=== PATIENT | male | born 1970 | race American Indian/Alaskan Native ===

== ENCOUNTER 2017-12-08 13:30 | Emergency (ER) | payer SELFPAY ==
[2017-12-08] MEDS ORDERED: ASPIRIN PO ONE (13:54)
[2017-12-08 14:22] LABS: Basophils % (Auto) 0.5 % (0.0-1.8); Eosinophils # (Auto) 0.4 K/mm3 (0.0-0.4); Eosinophils % (Auto) 5.1 % (0.0-4.3); Hemoglobin 15.5 gm/dl (11.8-15.2); Lymphocytes # (Auto) 3.1 K/mm3 (1.2-5.4); Lymphocytes % (Auto) 37.9 % (13.4-35.0); Mean Corpuscular HGB Conc 34 % (32-34); Mean Corpuscular Hemoglobin 32 pg (28-32); Mean Corpuscular Volume 92 fl (84-94); Monocytes # (Auto) 0.6 K/mm3 (0.0-0.8); Platelet Count 244 K/mm3 (140-440); Red Cell Distribution Width 14.5 % (13.2-15.2)
[2017-12-08 14:37] LABS: BUN/Creatinine Ratio 11; Blood Urea Nitrogen 10 mg/dL (9-20); Calcium 9.3 mg/dL (8.4-10.2); Hemolysis Index 15
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
[2017-12-08 21:59] VITALS: BP 118/81
--- NOTE | 2017-12-08 22:20 | XRay Report ---
FINAL REPORT EXAM: XR CHEST 1V AP HISTORY: chest pain TECHNIQUE: Single, portable chest x-ray. PRIORS: None. FINDINGS: Cardiac and mediastinal silhouette within normal limits. Lungs are normally expanded, without significant vascular congestion. No focal consolidation or apparent pneumothorax. Bony thorax grossly unremarkable. IMPRESSION: 1. No acute findings.
== END 2017-12-08 23:03 | disposition home or self-care (01) ==
LOC: ED 13:30
DX: R07.9 Chest pain, unspecified (principal); J45.909 Unspecified asthma, uncomplicated; F17.200 Nicotine dependence, unspecified, uncomplicated; F10.10 Alcohol abuse, uncomplicated; F19.90 Other psychoactive substance use, unspecified, uncomplicated; Z88.0 Allergy status to penicillin
CPT/HCPCS: 36415; 71045; 80048; 83690; 84484; 85025; 85379; 93005; 93010; 99284

== ENCOUNTER 2018-01-12 20:53 | Inpatient (IN) | payer OTHER ==
[2018-01-12 21:46] LABS: Basophils % (Auto) 0.4 % (0.0-1.8); Eosinophils # (Auto) 0.2 K/mm3 (0.0-0.4); Eosinophils % (Auto) 2.1 % (0.0-4.3); Hematocrit 43.5 % (35.5-45.6); Hemoglobin 15.1 gm/dl (11.8-15.2); Lymphocytes # (Auto) 3.7 K/mm3 (1.2-5.4); Lymphocytes % (Auto) 42.5 % (13.4-35.0); Mean Corpuscular HGB Conc 35 % (32-34); Mean Corpuscular Hemoglobin 32 pg (28-32); Mean Corpuscular Volume 93 fl (84-94); Monocytes # (Auto) 0.7 K/mm3 (0.0-0.8); Monocytes % (Auto) 8.4 % (0.0-7.3); Platelet Count 327 K/mm3 (140-440); Red Blood Count 4.67 M/mm3 (3.65-5.03); Red Cell Distribution Width 14.3 % (13.2-15.2)
[2018-01-12 21:59] LABS: Alanine Aminotransferase 30 units/L (7-56); Albumin 4.5 g/dL (3.9-5); BUN/Creatinine Ratio 10; Blood Urea Nitrogen 9 mg/dL (9-20); Calcium 10.1 mg/dL (8.4-10.2); Hemolysis Index 7
[2018-01-12 22:21] LABS: Bilirubin,Urine NEG (Negative); Blood,Urine NEG (Negative); Color,Urine Yellow (Yellow); Protein,Urine <15 mg/dL mg/dL (Negative); Urobilinogen,Urine < 2.0 mg/dL (<2.0); WBC,Urine < 1.0 /HPF (0.0-6.0)
[2018-01-12 22:29] LABS: Amphetamine Screen,Urine PRESUMPTIVE NEGATIVE; Benzodiazepines Screen,Urine PRESUMPTIVE NEGATIVE; Cannabinoid Screen,Urine PRESUMPTIVE NEGATIVE; Cocaine Screen,Urine PRESUMPTIVE NEGATIVE; Methadone Screen,Urine PRESUMPTIVE NEGATIVE; Opiate Screen,Urine PRESUMPTIVE NEGATIVE
[2018-01-13] MEDS ORDERED: BABY ASPIRIN PO ONE (00:27)
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
[2018-01-13] MEDS ORDERED: MORPHINE IV PRN (04:03)
[2018-01-13 05:33] LABS: Creatine Kinase MB 4.3 ng/mL (0.0-4.0)
--- NOTE | 2018-01-13 08:52 | History and Physical Report ---
History of Present Illness Date of examination: 01/13/18 Date of admission: 01/13/18 04:02 Chief complaint: chest pain History of present illness: Mr. Fontaine is a 47 yo male with hx of depression and polysubstance abuse. He has been clean of alcohol and cocaine for the past 18 months. He is currently in a rehab program. Today at work, he had the sudden onset of left shoulder/ upper back pain, headache and lightheadedness. He felt as if has was going to pass out. Pain lasted several minutes. Now, resolved. ONly slight frontal headache currently. Seen in ED last month for chest pain. Was not able to f/u for outpatient cardiac stress test. He does not have a PCP. Both parents have hx of cardiac dz. He has hx of continued tobacco abuse. He has been under a lot of stress. His abandoned him and the children 5 days ago last . Past medical History: h/o depression Past surgical History: None Social History: Lives with family, admits smoking, has history of drinking and elicit drug abuse but now in recovery. Family History: Significant for heart disease in father and mother recurrent open heart surgery. Review of System: Constitutional: no fever, no chills, no weight loss Ears, eyes, nose, mouth and throat: no nasal congestion, no nasal discharge, no sinus pressure, no vision change, no red eye. Neck: No neck pain or rigidity. Cardiovascular: + chest pain, no orthopnea, no palpitations, no leg swelling Respiratory: No shortness of breath, no cough, no congestion, no wheezing Gastrointestinal: no abdominal pain, no nausea, no vomiting Genitourinary : no dysuria, no hematuria Musculoskeletal: no joint swelling or muscle ache Integumentary: no rash, no pruritis Neurological: no parathesias, no numbness, no tingling Endocrine: no cold or heat intolerance, no polyuria or polydipsia Hematologic/Lymphatic: no easy bruising, no easy bleeding, no gland swelling Allergic/Immunologic: no urticaria, no angioedema. Medications and Allergies Allergies Allergy/AdvReac Type Severity Reaction Status Date / Time Penicillins Allergy Hives Verified 04/22/15 01:04 Home Medications Medication Instructions Recorded Confirmed Last Taken Type Doxycycline [Vibramycin CAP] 100 mg PO Q12HR #20 capsule 04/08/16 Unknown Rx Active Meds: Active Medications Morphine Sulfate (Morphine) 2 mg IV Q4H PRN PRN Reason: Pain, Moderate (4-6) Exam - Physical Exam Narrative exam: GENERAL: well-developed obese -[place] male lying on bed appeared to be in no discomfort. HEENT: Normocephalic. Atraumatic. No conjunctival congestion or icterus. Patient has moist mucous membranes. NECK: Supple. Trachea midline. CHEST/LUNGS: Clear to auscultated bilaterally, breathing nonlabored. No wheezes crackles or rhonchi. HEART/CARDIOVASCULAR: Regular in rate and rhythm. S1 and S2 positive. ABDOMEN: Abdomen is soft, nontender. Patient has normal bowel sounds. SKIN: There is no rash. Warm and dry. NEURO: No focal motor deficit. Follows command. MUSCULOSKELETAL: No joint effusion or tenderness. EXTRIMITY: No edema, no cyanosis or clubbing. PSYCH: Cooperative. - Constitutional Vitals: Temp Pulse Resp BP Pulse Ox 97.4 F L 63 15 129/82 92 01/13/18 01:00 01/13/18 06:00 01/13/18 06:00 01/13/18 06:00 01/13/18 06:00 Results - Labs CBC & Chem 7: 01/12/18 21:35 01/12/18 21:35 Labs: Abnormal lab results 01/12/18 01/12/18 01/13/18 Range/Units 21:35 21:35 04:40 MCHC 35 H (32-34) % Lymph % (Auto) 42.5 H (13.4-35.0) % [place] % (Auto) 8.4 H (0.0-7.3) % Glucose 109 H (75-100) mg/dL Total Creatine Kinase 328 H (55-170) units/L CK-MB (CK-2) 4.3 H (0.0-4.0) ng/mL Assessment and Plan Acute chest pain - will admit to telemetry bed - monitor with serial CE and EKG - will place on Aspirin, statin - as needed SL NTG and iv morphin for pain - Monitor BP, add betablocker and ACEI - order 2D echo and stress test - cardiac diet now, NPO for now Depression, resume home meds Obesity, diet and exercise recommendation when clinically stable DVT PX, - provide DVT Px with lovenox
[2018-01-13 10:31] LABS: Creatine Kinase MB 3.8 ng/mL (0.0-4.0)
[2018-01-13] MEDS ORDERED: LEXISCAN IV ONE (12:00)
--- NOTE | 2018-01-13 13:17 | Treadmill Report ---
SINGLE ISOTOPE DUAL STUDY MYOCARDIAL PERFUSION SCAN The patient received 10 mCi of technetium 99m Myoview intravenously under resting conditions. Resting myocardial perfusion scan was done. Subsequently, the patient underwent Lexiscan stress test as per the protocol. During Lexiscan stress, the patient received 28 mCi of technetium 99m Myoview intravenously. After 30-60 minutes, post stress images were done. Computerized reconstruction image was performed for analysis. The post-stress images did not reveal any perfusion abnormality. Cinematic display of the gated study did not reveal any wall motion abnormality. The left ventricular ejection fraction was normal and was calculated to be 57%. The resting images were also normal. CONCLUSION: 1. No perfusion abnormality of the left ventricular myocardium was demonstrated in the resting as well as stress images obtained after the patient underwent Lexiscan stress test. 2. No wall motion abnormality. 3. Normal left ventricular ejection fraction of 57%. JOB# [id number] [facility]
[2018-01-13 13:27] VITALS: BP 123/81
--- NOTE | 2018-01-13 14:48 | Discharge Summary ---
Providers - Providers Date of Admission: 01/13/18 04:02 Date of discharge: 01/13/18 Attending physician: NABILA CHIU Primary care physician: ELSIE HINSON MD Hospitalization Condition: Stable Hospital course: Discharge diagnosis: Chest pain, likely GERD depression obesity Disposition: DC-01 TO HOME OR SELFCARE Time spent for discharge: 32 minutes Core Measure Documentation - Palliative Care Palliative Care/ Comfort Measures: Not Applicable - Core Measures Any of the following diagnoses?: none Exam - Physical Exam Narrative exam: GENERAL: well-developed obese -Turk[place] male lying on bed appeared to be in no discomfort. HEENT: Normocephalic. Atraumatic. No conjunctival congestion or icterus. Patient has moist mucous membranes. NECK: Supple. Trachea midline. CHEST/LUNGS: Clear to auscultated bilaterally, breathing nonlabored. No wheezes crackles or rhonchi. HEART/CARDIOVASCULAR: Regular in rate and rhythm. S1 and S2 positive. ABDOMEN: Abdomen is soft, nontender. Patient has normal bowel sounds. SKIN: There is no rash. Warm and dry. NEURO: No focal motor deficit. Follows command. MUSCULOSKELETAL: No joint effusion or tenderness. EXTRIMITY: No edema, no cyanosis or clubbing. PSYCH: Cooperative. - Constitutional Vitals: Temp Pulse Resp BP Pulse Ox 97.9 F 69 20 123/81 98 01/13/18 12:35 01/13/18 12:35 01/13/18 14:28 01/13/18 12:35 01/13/18 14:28 Plan Activity: advance as tolerated Weight Bearing Status: Weight Bear as Tolerated Diet: low fat, low salt Additional Instructions: f/u at [facility] in one week Follow up with: PRIMARY CAREMD [Primary Care Provider] - 3-5 Days Prescriptions: Pantoprazole [Protonix] 40 mg PO QDAY #30 tablet
--- NOTE | 2018-01-13 17:41 | XRay Report ---
FINAL REPORT EXAM: XR CHEST 1V AP HISTORY: chest pain TECHNIQUE: Frontal chest radiograph. PRIORS: 12/08/2017. FINDINGS: The left lateral costophrenic angle was not completely included on the study. The cardiomediastinal silhouette is normal. No focal consolidation. No pleural effusion. No pneumothorax. No acute osseous abnormality. IMPRESSION: No acute cardiopulmonary process.
[2018-01-13] MEDS ORDERED: LOVENOX SUB-Q SCH (22:00)
== END 2018-01-13 18:40 | disposition home or self-care (01) | DRG 392 ==
LOC: ED 20:53 → 4A 01-13 04:02
PROVIDERS: ADMIT Internal Medicine; ATTEND Internal Medicine
DX: K21.9 Gastro-esophageal reflux disease without esophagitis (principal); F32.9 Major depressive disorder, single episode, unspecified; E66.9 Obesity, unspecified; G43.909 Migraine, unspecified, not intractable, without status migrainosus; J45.909 Unspecified asthma, uncomplicated; F17.200 Nicotine dependence, unspecified, uncomplicated; F14.90 Cocaine use, unspecified, uncomplicated; M25.519 Pain in unspecified shoulder; Z68.31 Body mass index [BMI] 31.0-31.9, adult; Z82.49 Family history of ischemic heart disease and other diseases of the circulatory system; Z88.0 Allergy status to penicillin; Z79.899 Other long term (current) drug therapy; Z72.89 Other problems related to lifestyle
CPT/HCPCS: 36415; 71045; 78452; 80053; 80307; 81001; 82550; 82553; 84484; 85025; 85379; 93005; 93010; 93017; 93306; A9502; J2785

== ENCOUNTER 2019-12-02 19:57 | Inpatient (IN) | payer SELFPAY ==
[2019-12-02] MEDS ORDERED: SODIUM CHLORIDE 0.9% 1000 ML 1,000 ML IV ONE ×2 (21:39→23:12)
[2019-12-02 22:01] LABS: Basophils # (Auto) 0.3 K/mm3 (0.0-0.1); Basophils % (Auto) 2.9 % (0.0-1.8); Eosinophils # (Auto) 0.1 K/mm3 (0.0-0.4); Eosinophils % (Auto) 0.7 % (0.0-4.3); Hematocrit 47.5 % (35.5-45.6); Hemoglobin 16.1 gm/dl (11.8-15.2); Lymphocytes # (Auto) 2.3 K/mm3 (1.2-5.4); Lymphocytes % (Auto) 22.2 % (13.4-35.0); Mean Corpuscular HGB Conc 34 % (32-34); Mean Corpuscular Volume 94 fl (84-94); Monocytes # (Auto) 0.6 K/mm3 (0.0-0.8); Monocytes % (Auto) 6.2 % (0.0-7.3); Platelet Count 356 K/mm3 (140-440); Red Blood Count 5.05 M/mm3 (3.65-5.03); Red Cell Distribution Width 13.7 % (13.2-15.2)
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
[2019-12-02 22:19] LABS: Alanine Aminotransferase 17 units/L (7-56); Albumin 4.9 g/dL (3.9-5); BUN/Creatinine Ratio 16; Blood Urea Nitrogen 21 mg/dL (9-20); Calcium 10.5 mg/dL (8.4-10.2); Hemolysis Index 6
[2019-12-02] MEDS ORDERED: INSULIN REGULAR, HUMAN 100 UNITS/1 ML IV ONE (22:39)
[2019-12-02 22:45] LABS: Bilirubin,Urine NEG (Negative); Blood,Urine NEG (Negative); Color,Urine Straw (Yellow); Protein,Urine <15 mg/dL mg/dL (Negative); Urobilinogen,Urine < 2.0 mg/dL (<2.0)
--- NOTE | 2019-12-02 23:23 | Event Note ---
Face to Face: For this encounter I have reviewed the PA/FULL STACK DEVELOPER documentation, treatment plan, medical decision making, and I had face to face time with this patient. I evaluated patient. Dx: DKA I ordered IVF, insulin infusion; I provided bridging orders
[2019-12-02] MEDS ORDERED: ONDANSETRON 4 MG/2 ML INJ IV PRN (23:43)
[2019-12-02] MEDS ORDERED: DEXTROSE 50% IN WATER (25GM) 50 ML SYRINGE IV PRN (23:43)
[2019-12-02] MEDS ORDERED: INSULIN REGULAR, HUMAN 100 UNITS in SODIUM CHLORIDE 0.9% 99 ML IV SCH ×3 (23:45)
[2019-12-02] MEDS ORDERED: SODIUM CHLORIDE 0.9% 1000 ML 1,000 ML IV SCH (23:45)
--- NOTE | 2019-12-03 00:01 | History and Physical Report ---
History of Present Illness Date of examination: 12/02/19 Date of admission: 12/02/2019 Chief complaint: Generalized fatigue History of present illness: 49-year-old -[place] male with no significant past medical history presenting to the emergency room today complaining of generalized fatigue, increased thirst and increased urinary frequency. He has also had some nausea and vomiting with some mild abdominal discomfort, denies any diarrhea, denies any fever or chills, no chest pain or shortness of breath. Patient denies any sick contacts and no recent travel. Work-up in the emergency room reveals that patient is in DKA. He has been started on insulin drip and IV fluid. Past History Past Medical History: No medical history Past Surgical History: No surgical history Social history: smoking (1/2 Pack of cigarette daily) Family history: no significant family history Medications and Allergies Allergies Allergy/AdvReac Type Severity Reaction Status Date / Time Penicillins Allergy Hives Verified 04/22/15 01:04 Home Medications Medication Instructions Recorded Confirmed Last Taken Type DOXYCYCLINE Hyclate [Vibramycin 100 mg PO Q12HR #20 capsule 04/08/16 Unknown Rx CAP] Pantoprazole [Protonix] 40 mg PO QDAY #30 tablet 01/13/18 Unknown Rx Active Meds: Active Medications Dextrose (D50w (25gm) Syringe) 0 ml IV Q30MIN PRN; Protocol PRN Reason: Hypoglycemia Sodium Chloride (Nacl 0.9% 1000 Ml) 1,000 mls @ 999 mls/hr IV BOLUS ONE Stop: 12/03/19 00:12 Last Admin: 12/02/19 23:24 Dose: 999 mls/hr Documented by: Insulin Human Regular 100 (units/ Sodium Chloride) 100 mls @ 1 mls/hr IV TITR ALLIE; Protocol Sodium Chloride (Nacl 0.9% 1000 Ml) 1,000 mls @ 150 mls/hr IV DIRECT ALLIE Insulin Human Regular 100 (units/ Sodium Chloride) 100 mls @ 1 mls/hr IV TITR ALLIE; Protocol Potassium Chloride/Dextrose/Sod Cl (D5w/0.45% Nacl/Kcl 20 Meq) 20 meq in 1,000 mls @ 125 mls/hr IV DIRECT ALLIE Ondansetron HCl (Zofran) 4 mg IV Q8H PRN PRN Reason: Nausea And Vomiting Sodium Chloride (Sodium Chloride Flush Syringe 10 Ml) 10 ml IV BID ALLIE Sodium Chloride (Sodium Chloride Flush Syringe 10 Ml) 10 ml IV PRN PRN PRN Reason: LINE FLUSH Review of Systems Constitutional: no fever, no chills Cardiovascular: no chest pain, no palpitations Respiratory: no cough, no shortness of breath Gastrointestinal: abdominal pain, nausea, vomiting, no diarrhea Genitourinary Male: urinary frequency, no dysuria, no hematuria Musculoskeletal: no neck stiffness, no low back pain Integumentary: no rash, no pruritis Neurological: no syncope, no headaches, no confusion Exam - Constitutional Vitals: Temp Pulse Resp BP Pulse Ox 97.8 F 107 H 18 141/89 97 12/02/19 21:01 12/02/19 21:01 12/02/19 21:01 12/02/19 21:12/02/19 21:01 General appearance: Present: no acute distress, well-nourished, other (Dry oral mucosa) - EENT Eyes: Present: PERRL, EOM intact ENT: hearing intact, clear oral mucosa, dentition normal - Neck Neck: Present: supple, normal ROM - Respiratory Respiratory effort: normal Respiratory: bilateral: CTA - Cardiovascular Rhythm: regular Heart Sounds: Present: S1 & S2 - Extremities Extremities: no ischemia, pulses intact, pulses symmetrical, No edema, Full ROM Peripheral Pulses: within normal limits - Abdominal General gastrointestinal: Present: soft, non-tender, non-distended, normal bowel sounds - Integumentary Integumentary: Present: clear, warm, dry, normal turgor - Musculoskeletal Musculoskeletal: strength equal bilaterally - Psychiatric Psychiatric: appropriate mood/affect, intact judgment & insight, cooperative - Neurologic Neurologic: CNII-XII intact, moves all extremities Results - Labs CBC & Chem 7: 12/02/19 21:45 12/03/19 00:46 Labs: Abnormal lab results 12/02/19 12/02/19 12/02/19 Range/Units 21:45 21:45 21:45 RBC 5.05 H (3.65-5.03) M/mm3 Hgb 16.1 H (11.8-15.2) gm/dl Hct 47.5 H (35.5-45.6) % Baso % (Auto) 2.9 H (0.0-1.8) % Baso # 0.3 H (0.0-0.1) K/mm3 VBG pH 7.314 L (7.320-7.420) Sodium 131 L (137-145) mmol/L Potassium 5.4 H (3.6-5.0) mmol/L Chloride 90.9 L (98-107) mmol/L Carbon Dioxide 19 L (22-30) mmol/L BUN 21 H (9-20) mg/dL Glucose 492 H (75-100) mg/dL Calcium 10.5 H (8.4-10.2) mg/dL Magnesium (1.7-2.3) mg/dL Total Protein 8.5 H (6.3-8.2) g/dL 12/02/19 Range/Units 22:19 RBC (3.65-5.03) M/mm3 Hgb (11.8-15.2) gm/dl Hct (35.5-45.6) % Baso % (Auto) (0.0-1.8) % Baso # (0.0-0.1) K/mm3 VBG pH (7.320-7.420) Sodium (137-145) mmol/L Potassium (3.6-5.0) mmol/L Chloride (98-107) mmol/L Carbon Dioxide (22-30) mmol/L BUN (9-20) mg/dL Glucose (75-100) mg/dL Calcium (8.4-10.2) mg/dL Magnesium 2.70 H (1.7-2.3) mg/dL Total Protein (6.3-8.2) g/dL Assessment and Plan - Patient Problems (1) DKA (diabetic ketoacidosis) Current Visit: Yes Status: Acute Plan to address problem: Patient has been placed on insulin drip and IV fluid according to protocol. We will monitor Accu-Cheks and also monitor chemistry. We will get dietary consult prior to discharge. (2) DVT prophylaxis Current Visit: Yes Status: Acute Plan to address problem: Patient placed on subcutaneous heparin. (3) Full code status Current Visit: Yes Status: Acute
[2019-12-03 01:07] LABS: BUN/Creatinine Ratio 19; Blood Urea Nitrogen 17 mg/dL (9-20); Calcium 8.7 mg/dL (8.4-10.2); Hemolysis Index 42
[2019-12-03] MEDS: D5W/0.45% NACL/KCL 20 MEQ 20 MEQ/1,000 ML BAG IV SCH ×2 (02:10→09:30)
[2019-12-03 06:44] LABS: Basophils # (Auto) 0.1 K/mm3 (0.0-0.1); Basophils % (Auto) 0.6 % (0.0-1.8); Eosinophils # (Auto) 0.1 K/mm3 (0.0-0.4); Eosinophils % (Auto) 1.1 % (0.0-4.3); Hematocrit 42.1 % (35.5-45.6); Hemoglobin 14.4 gm/dl (11.8-15.2); Lymphocytes # (Auto) 3.3 K/mm3 (1.2-5.4); Lymphocytes % (Auto) 39.1 % (13.4-35.0); Mean Corpuscular HGB Conc 34 % (32-34); Mean Corpuscular Volume 94 fl (84-94); Monocytes # (Auto) 0.7 K/mm3 (0.0-0.8); Monocytes % (Auto) 8.2 % (0.0-7.3); Platelet Count 324 K/mm3 (140-440); Red Blood Count 4.49 M/mm3 (3.65-5.03); Red Cell Distribution Width 13.5 % (13.2-15.2)
[2019-12-03 07:48] LABS: BUN/Creatinine Ratio 14; Blood Urea Nitrogen 13 mg/dL (9-20); Hemolysis Index 18
[2019-12-03] MEDS ORDERED: POTASSIUM PHOSPHATE 15 MMOL in SODIUM CHLORIDE 0.9% 250ML 250 ML IV ONE (09:00)
[2019-12-03 10:44] LABS: BUN/Creatinine Ratio 14; Blood Urea Nitrogen 11 mg/dL (9-20); Calcium 8.9 mg/dL (8.4-10.2); Hemolysis Index 18
--- NOTE | 2019-12-03 12:19 | Progress Note ---
Assessment and Plan DKA with type 2 diabetes -Patient admitted to ICU with insulin drip -Anion gap closed this morning, will DC insulin drip and placed on long-acting insulin along with sliding scale insulin with Accu-Chek QA CHS -We will continue to adjust insulin doses to better control blood glucose -Placed on consistent carb diet, A1c 11.1 New onset diabetes mellitus type 2 -Placed on long-acting and sliding scale of insulin today -If BMP stable will place on metformin tomorrow -Consulted nutrition for diabetic education Hyponatremia, likely due to hyperglycemia -Improved with improvement of blood glucose, continue to monitor BMP Hyperkalemia, likely from dehydration resolved with IV fluid Hypophosphatemia, replete DVT prophylaxis, Lovenox Brief history: 49-year-old -[place] male with no significant past medical history presentedto the emergency room today complaining of generalized fatigue, increased thirst and increased urinary frequency. He has also had some nausea and vomiting with some mild abdominal discomfort. Work-up in the emergency room reveals that patient is in DKA with a blood glucose 492, anion gap 27, positive ketones of 80 in the urine. He he was started on insulin drip, IV fluid and admitted to ICU for further management.. Physical exam: GENERAL: well-developed and well-nourished -[place] male lying on bed appeared to be in no discomfort. HEENT: Normocephalic. Atraumatic. No conjunctival congestion or icterus. Patient has moist mucous membranes. NECK: Supple. Trachea midline. CHEST/LUNGS: Clear to auscultated bilaterally, breathing nonlabored. No wheezes crackles or rhonchi. HEART/CARDIOVASCULAR: Regular in rate and rhythm. S1 and S2 positive. ABDOMEN: Abdomen is soft, nontender. Patient has normal bowel sounds. SKIN: There is no rash. Warm and dry. NEURO: No focal motor deficit. Follows command. MUSCULOSKELETAL: No joint effusion or tenderness. EXTRIMITY: No edema, no cyanosis or clubbing. PSYCH: Cooperative. Subjective Date of service: 12/03/19 Interval history: Patient seen and examined. Medical records and medication list reviewed. No acute event overnight noted by the RN. Patient denies any chest pain or difficulty breathing. Patient complains of nausea but no abdominal pain Discussed plan of care at bedside with patient. Objective - Constitutional Vitals: Vital Signs - 12hr 12/03/19 12/03/19 12/03/19 00:30 01:00 01:30 Temperature Pulse Rate 92 H 107 H 91 H Respiratory 17 22 25 H Rate Blood Pressure 117/81 117/81 127/88 Blood Pressure [Left] O2 Sat by Pulse 95 97 96 Oximetry 12/03/19 12/03/19 12/03/19 02:00 02:20 03:01 Temperature 98.2 F Pulse Rate 88 91 H Respiratory 14 Rate Blood Pressure 113/80 Blood Pressure [Left] O2 Sat by Pulse 96 Oximetry 12/03/19 12/03/19 12/03/19 04:00 05:00 05:23 Temperature 97.7 F 97.7 F Pulse Rate 86 71 71 Respiratory 14 17 17 Rate Blood Pressure 114/77 128/77 Blood Pressure 128/77 [Left] O2 Sat by Pulse 96 97 97 Oximetry 12/03/19 12/03/19 12/03/19 06:00 07:00 08:00 Temperature 98.7 F Pulse Rate 81 81 80 Respiratory 15 14 15 Rate Blood Pressure 128/77 121/80 113/71 Blood Pressure [Left] O2 Sat by Pulse 94 95 97 Oximetry 12/03/19 12/03/19 12/03/19 09:00 10:00 12:00 Temperature 98.6 F Pulse Rate 82 77 92 H Respiratory 14 14 Rate Blood Pressure 108/56 116/82 Blood Pressure [Left] O2 Sat by Pulse 93 97 Oximetry - Labs CBC & Chem 7: 12/03/19 05:50 12/03/19 10:13 Labs: Abnormal lab results 12/02/19 12/02/19 12/02/19 Range/Units 21:45 21:45 21:45 RBC 5.05 H (3.65-5.03) M/mm3 Hgb 16.1 H (11.8-15.2) gm/dl Hct 47.5 H (35.5-45.6) % Lymph % (Auto) (13.4-35.0) % Gem % (Auto) (0.0-7.3) % Baso % (Auto) 2.9 H (0.0-1.8) % Baso # 0.3 H (0.0-0.1) K/mm3 VBG pH 7.314 L (7.320-7.420) Sodium 131 L (137-145) mmol/L Potassium 5.4 H (3.6-5.0) mmol/L Chloride 90.9 L (98-107) mmol/L Carbon Dioxide 19 L (22-30) mmol/L BUN 21 H (9-20) mg/dL Glucose 492 H (75-100) mg/dL POC Glucose (70-105) Hemoglobin A1c (4-6) % Calcium 10.5 H (8.4-10.2) mg/dL Phosphorus (2.5-4.5) mg/dL Magnesium (1.7-2.3) mg/dL Total Protein 8.5 H (6.3-8.2) g/dL 12/02/19 12/02/19 12/03/19 Range/Units 22:19 23:17 00:46 RBC (3.65-5.03) M/mm3 Hgb (11.8-15.2) gm/dl Hct (35.5-45.6) % Lymph % (Auto) (13.4-35.0) % Gem % (Auto) (0.0-7.3) % Baso % (Auto) (0.0-1.8) % Baso # (0.0-0.1) K/mm3 VBG pH (7.320-7.420) Sodium (137-145) mmol/L Potassium (3.6-5.0) mmol/L Chloride (98-107) mmol/L Carbon Dioxide (22-30) mmol/L BUN (9-20) mg/dL Glucose (75-100) mg/dL POC Glucose (70-105) Hemoglobin A1c 11.1 H (4-6) % Calcium (8.4-10.2) mg/dL Phosphorus (2.5-4.5) mg/dL Magnesium 2.70 H 2.40 H (1.7-2.3) mg/dL Total Protein (6.3-8.2) g/dL 12/03/19 12/03/19 12/03/19 Range/Units 00:46 01:33 02:16 RBC (3.65-5.03) M/mm3 Hgb (11.8-15.2) gm/dl Hct (35.5-45.6) % Lymph % (Auto) (13.4-35.0) % Gem % (Auto) (0.0-7.3) % Baso % (Auto) (0.0-1.8) % Baso # (0.0-0.1) K/mm3 VBG pH (7.320-7.420) Sodium 135 L (137-145) mmol/L Potassium (3.6-5.0) mmol/L Chloride (98-107) mmol/L Carbon Dioxide 16 L (22-30) mmol/L BUN (9-20) mg/dL Glucose 299 H (75-100) mg/dL POC Glucose 257 H 217 H (70-105) Hemoglobin A1c (4-6) % Calcium (8.4-10.2) mg/dL Phosphorus (2.5-4.5) mg/dL Magnesium (1.7-2.3) mg/dL Total Protein (6.3-8.2) g/dL 12/03/19 12/03/19 12/03/19 Range/Units 03:10 04:10 05:11 RBC (3.65-5.03) M/mm3 Hgb (11.8-15.2) gm/dl Hct (35.5-45.6) % Lymph % (Auto) (13.4-35.0) % Gem % (Auto) (0.0-7.3) % Baso % (Auto) (0.0-1.8) % Baso # (0.0-0.1) K/mm3 VBG pH (7.320-7.420) Sodium (137-145) mmol/L Potassium (3.6-5.0) mmol/L Chloride (98-107) mmol/L Carbon Dioxide (22-30) mmol/L BUN (9-20) mg/dL Glucose (75-100) mg/dL POC Glucose 208 H 202 H 189 H (70-105) Hemoglobin A1c (4-6) % Calcium (8.4-10.2) mg/dL Phosphorus (2.5-4.5) mg/dL Magnesium (1.7-2.3) mg/dL Total Protein (6.3-8.2) g/dL 12/03/19 12/03/19 12/03/19 Range/Units 05:50 05:50 06:19 RBC (3.65-5.03) M/mm3 Hgb (11.8-15.2) gm/dl Hct (35.5-45.6) % Lymph % (Auto) 39.1 H (13.4-35.0) % Gem % (Auto) 8.2 H (0.0-7.3) % Baso % (Auto) (0.0-1.8) % Baso # (0.0-0.1) K/mm3 VBG pH (7.320-7.420) Sodium (137-145) mmol/L Potassium (3.6-5.0) mmol/L Chloride (98-107) mmol/L Carbon Dioxide (22-30) mmol/L BUN (9-20) mg/dL Glucose 207 H (75-100) mg/dL POC Glucose 211 H (70-105) Hemoglobin A1c (4-6) % Calcium (8.4-10.2) mg/dL Phosphorus 2.00 L D (2.5-4.5) mg/dL Magnesium 2.50 H (1.7-2.3) mg/dL Total Protein (6.3-8.2) g/dL 12/03/19 12/03/19 12/03/19 Range/Units 07:12 08:04 09:31 RBC (3.65-5.03) M/mm3 Hgb (11.8-15.2) gm/dl Hct (35.5-45.6) % Lymph % (Auto) (13.4-35.0) % Gem % (Auto) (0.0-7.3) % Baso % (Auto) (0.0-1.8) % Baso # (0.0-0.1) K/mm3 VBG pH (7.320-7.420) Sodium (137-145) mmol/L Potassium (3.6-5.0) mmol/L Chloride (98-107) mmol/L Carbon Dioxide (22-30) mmol/L BUN (9-20) mg/dL Glucose (75-100) mg/dL POC Glucose 195 H 192 H 176 H (70-105) Hemoglobin A1c (4-6) % Calcium (8.4-10.2) mg/dL Phosphorus (2.5-4.5) mg/dL Magnesium (1.7-2.3) mg/dL Total Protein (6.3-8.2) g/dL 12/03/19 12/03/19 12/03/19 Range/Units 10:13 10:45 11:50 RBC (3.65-5.03) M/mm3 Hgb (11.8-15.2) gm/dl Hct (35.5-45.6) % Lymph % (Auto) (13.4-35.0) % Gem % (Auto) (0.0-7.3) % Baso % (Auto) (0.0-1.8) % Baso # (0.0-0.1) K/mm3 VBG pH (7.320-7.420) Sodium 135 L (137-145) mmol/L Potassium (3.6-5.0) mmol/L Chloride (98-107) mmol/L Carbon Dioxide 20 L (22-30) mmol/L BUN (9-20) mg/dL Glucose 181 H (75-100) mg/dL POC Glucose 180 H 286 H (70-105) Hemoglobin A1c (4-6) % Calcium (8.4-10.2) mg/dL Phosphorus (2.5-4.5) mg/dL Magnesium (1.7-2.3) mg/dL Total Protein (6.3-8.2) g/dL
[2019-12-03] MEDS: INSULIN REGULAR, HUMAN 100 UNITS/1 ML SUB-Q SCH ×3 (12:20→21:27)
--- NOTE | 2019-12-03 13:41 | Consultation ---
History of Present Illness Consult date: 12/03/19 Requesting physician: ADELE PEREZ Reason for consult: other (DKA) History of present illness: PULMONARY/CCM CONSULT NOTE (Full dictation # [id number]) Please see dictated notes for full details Past History Past Medical History: No medical history Past Surgical History: No surgical history Social history: smoking (1/2 Pack of cigarette daily) Family history: no significant family history Medications and Allergies Allergies Allergy/AdvReac Type Severity Reaction Status Date / Time Penicillins Allergy Hives Verified 04/22/15 01:04 Home Medications Medication Instructions Recorded Confirmed Last Taken Type DOXYCYCLINE Hyclate [Vibramycin 100 mg PO Q12HR #20 capsule 04/08/16 Unknown Rx CAP] Pantoprazole [Protonix] 40 mg PO QDAY #30 tablet 01/13/18 Unknown Rx Active Meds: Active Medications Dextrose (D50w (25gm) Syringe) 0 ml IV Q30MIN PRN; Protocol PRN Reason: Hypoglycemia Heparin Sodium (Porcine) (Heparin) 5,000 unit SUB-Q Q8HR ALLIE Sodium Chloride (Nacl 0.9% 1000 Ml) 1,000 mls @ 150 mls/hr IV DIRECT ALLIE Insulin Human NPH (Humulin N) 18 unit SUB-Q BIDDIAB ALLIE Insulin Human Regular (Humulin R) 0 units SUB-Q ACHS ALLIE; Protocol Last Admin: 12/03/19 12:20 Dose: 6 units Documented by: Ondansetron HCl (Zofran) 4 mg IV Q8H PRN PRN Reason: Nausea And Vomiting Sodium Chloride (Sodium Chloride Flush Syringe 10 Ml) 10 ml IV BID ALLIE Last Admin: 12/03/19 09:33 Dose: 10 ml Documented by: Sodium Chloride (Sodium Chloride Flush Syringe 10 Ml) 10 ml IV PRN PRN PRN Reason: LINE FLUSH Physical Examination Vital signs: Vital Signs Temp Pulse Resp BP Pulse Ox 97.8 F 107 H 18 141/89 97 12/02/19 21:01 12/02/19 21:01 12/02/19 21:01 12/02/19 21:01 12/02/19 21:01 Results - Laboratory Findings CBC and BMP: 12/03/19 05:50 12/03/19 10:13 Abnormal lab findings: Abnormal Labs 12/02/19 12/02/19 12/02/19 21:45 21:45 21:45 RBC 5.05 H Hgb 16.1 H Hct 47.5 H Lymph % (Auto) [place] % (Auto) Baso % (Auto) 2.9 H Baso # 0.3 H VBG pH 7.314 L Sodium 131 L Potassium 5.4 H Chloride 90.9 L Carbon Dioxide 19 L BUN 21 H Glucose 492 H POC Glucose Hemoglobin A1c Calcium 10.5 H Phosphorus Magnesium Total Protein 8.5 H 12/02/19 12/02/19 12/03/19 22:19 23:17 00:46 RBC Hgb Hct Lymph % (Auto) [place] % (Auto) Baso % (Auto) Baso # VBG pH Sodium Potassium Chloride Carbon Dioxide BUN Glucose POC Glucose Hemoglobin A1c 11.1 H Calcium Phosphorus Magnesium 2.70 H 2.40 H Total Protein 12/03/19 12/03/19 12/03/19 00:46 01:33 02:16 RBC Hgb Hct Lymph % (Auto) [place] % (Auto) Baso % (Auto) Baso # VBG pH Sodium 135 L Potassium Chloride Carbon Dioxide 16 L BUN Glucose 299 H POC Glucose 257 H 217 H Hemoglobin A1c Calcium Phosphorus Magnesium Total Protein 12/03/19 12/03/19 12/03/19 03:10 04:10 05:11 RBC Hgb Hct Lymph % (Auto) [place] % (Auto) Baso % (Auto) Baso # VBG pH Sodium Potassium Chloride Carbon Dioxide BUN Glucose POC Glucose 208 H 202 H 189 H Hemoglobin A1c Calcium Phosphorus Magnesium Total Protein 12/03/19 12/03/19 12/03/19 05:50 05:50 06:19 RBC Hgb Hct Lymph % (Auto) 39.1 H [place] % (Auto) 8.2 H Baso % (Auto) Baso # VBG pH Sodium Potassium Chloride Carbon Dioxide BUN Glucose 207 H POC Glucose 211 H Hemoglobin A1c Calcium Phosphorus 2.00 L D Magnesium 2.50 H Total Protein 12/03/19 12/03/19 12/03/19 07:12 08:04 09:31 RBC Hgb Hct Lymph % (Auto) [place] % (Auto) Baso % (Auto) Baso # VBG pH Sodium Potassium Chloride Carbon Dioxide BUN Glucose POC Glucose 195 H 192 H 176 H Hemoglobin A1c Calcium Phosphorus Magnesium Total Protein 12/03/19 12/03/19 12/03/19 10:13 10:45 11:50 RBC Hgb Hct Lymph % (Auto) [place] % (Auto) Baso % (Auto) Baso # VBG pH Sodium 135 L Potassium Chloride Carbon Dioxide 20 L BUN Glucose 181 H POC Glucose 180 H 286 H Hemoglobin A1c Calcium Phosphorus Magnesium Total Protein
[2019-12-03] MEDS: HEPARIN 5,000 UNIT/1 ML VIAL SUB-Q SCH ×2 (14:49→21:26)
--- NOTE | 2019-12-03 16:21 | Consultation ---
CONSULTING PHYSICIAN: Dr. Hirsch. REASON FOR CONSULTATION: Diabetic ketoacidosis. CHIEF COMPLAINT AND HISTORY OF PRESENT ILLNESS: The patient is a 49-year-old -Filipino male, obese, but denies any other past medical history, came into the Emergency Room complaining of generalized fatigue, polydipsia, polyuria, nausea, vomiting, some abdominal pain. He denied diarrhea. He denied any sore throat. He denied any rhinorrhea or any other generalized body aches or suggestions of a viral syndrome. He denied any sick contacts. He denied any travel out of the country. He does have a 10+ pack year tobacco smoking history. He was evaluated in the Emergency Room, found to be essentially new onset diabetes with diabetic ketoacidosis as the presenting symptom, started on IV insulin drip and transferred to the Intensive Care Unit where I stopped by to see him. He was resting in bed, feeling better, was just about to be transitioned off the DKA protocol. No more nausea or vomiting this morning. He had a meal earlier and then had an episode of defecation; however, he states his stools were well formed. This really is much of the history of presentation as I have. PAST MEDICAL HISTORY: Obesity. PAST SURGICAL HISTORY: Denies. MEDICATIONS: He was on at the time I stopped by to see him were reviewed, pertinent medications include the following: Heparin 5000 units subcutaneous q. 8 hours, NPH insulin 18 units subcutaneous b.i.d., insulin via sliding scale, Zofran 4 mg IV q. 8 hours p.r.n. nausea and vomiting. ALLERGIES: PENICILLINS. Nature of that allergy is unknown. DIET: Obese gentleman. Denies significant weight loss or gain in the preceding few weeks to months. FAMILY AND SOCIAL HISTORY: Lives in the community. Denies alcohol, illicit drug use or abuse. He has a half a pack per day smoking habit. FAMILY HISTORY: Otherwise, noncontributory. REVIEW OF SYSTEMS: No loss of consciousness. No new onset seizures. No new onset focal weakness. No gross hematochezia or melena. No gross hematuria or dysuria. Denies heat or cold intolerance. Complete 13-system review of systems obtained. Pertinent positives and/or negatives as in body of history above, otherwise they are noncontributory. PHYSICAL EXAMINATION: VITAL SIGNS: At presentation is afebrile, temperature 97.8 degrees Fahrenheit, pulse of 107, respiratory rate of 18, blood pressure 141/89, O2 sats were 97%, inspired oxygen concentration at that time was not recorded. When I stopped by to see him, his O2 sats were 99% and that was on room air. GENERAL: He is a middle-aged obese -Filipino male. Normocephalic, atraumatic, talking to me in full sentences without significant respiratory distress. HEAD, EYES, EARS, NOSE AND THROAT: He is anicteric. No conjunctival erythema. Oropharynx was dry. Mallampati #3 oropharynx. No gross jugular venous distention, no thyromegaly. NECK: Grossly there were no palpable lymph nodes in the supraclavicular or submandibular lymph node chains. LUNGS: Auscultation of both lung pérez unremarkable. Lungs were clear bilaterally with good bilateral air movement. HEART: Heart sounds 1 and 2 are heard. They were regular in rate and rhythm at the time of my evaluation. ABDOMEN: Soft, full, mildly tender in the epigastric area. Protuberant, but not distended. Bowel sounds are positive. No palpable hepatosplenomegaly. EXTREMITIES: Without overt digital clubbing, no cyanosis, no pedal edema. NEUROLOGIC: Pupils are equal, round, 4 mm, reactive to light. Extraocular muscle movements were intact. He moves all 4 extremities spontaneously. SKIN: Normal turgor without overt cellulitis or rash in the areas examined. PSYCHIATRIC: Mood was normal. Affect appropriate. LABORATORY DATA: From my review, admission, white cell count 10,400, hemoglobin 16.1, hematocrit 47.5, platelet count 356. No manual differential. Venous blood gas was 7.31 pH at presentation. Serum sodium was 131, potassium 5.4, chloride 91, bicarbonate 19, BUN 21, creatinine 1.3, glucose was 492. Hemoglobin A1c 11.1. Liver function tests otherwise within normal limits. Urinalysis unremarkable. No microbiology studies. No radiographic studies. ASSESSMENT: 1. New onset diabetes. 2. Diabetic ketoacidosis. 3. Obesity. 4. Tobacco use disorder. 5. Mild metabolic acidosis. 6. Hyponatremia. 7. Hyperkalemia at presentation. PLAN: He is doing much better. He has been transitioned off the DKA protocol. Off IV insulin therapy. Long-acting insulin has been started and oral meals have been started. I have explained to him that essentially he has been told he has a baby with the name of diabetes and if he does not take care of the problem, the baby will or will kill him. Diabetic education is ongoing. Tobacco abstinence has been strongly counseled. Weight loss, lifestyle modification has been counseled. He is on DVT prophylaxis. He will be put on GI prophylaxis. Flu and pneumonia vaccination will be addressed per protocol. Thank you very much for the consult. We will follow along and make further recommendations as picture progresses/becomes clearer. JOB# [id number] DYLAN/VIC
[2019-12-03 16:24] LABS: BUN/Creatinine Ratio TNR; Blood Urea Nitrogen TNR mg/dL (9-20); Calcium TNR mg/dL (8.4-10.2); Hemolysis Index TNR
[2019-12-03] MEDS: INSULIN NPH, HUMAN 100 UNIT/1 ML SUB-Q SCH (18:39)
[2019-12-03 22:16] LABS: BUN/Creatinine Ratio 14; Blood Urea Nitrogen 11 mg/dL (9-20); Hemolysis Index 2
[2019-12-04 00:33] LABS: BUN/Creatinine Ratio 14; Blood Urea Nitrogen 11 mg/dL (9-20); Calcium 8.8 mg/dL (8.4-10.2); Hemolysis Index 12
[2019-12-04] MEDS: HEPARIN 5,000 UNIT/1 ML VIAL SUB-Q SCH (05:51)
[2019-12-04 06:29] LABS: BUN/Creatinine Ratio 13; Blood Urea Nitrogen 10 mg/dL (9-20); Calcium 9.1 mg/dL (8.4-10.2); Hemolysis Index 10
[2019-12-04 08:45] VITALS: BP 110/75
[2019-12-04] MEDS: INSULIN NPH, HUMAN 100 UNIT/1 ML SUB-Q SCH (09:49)
[2019-12-04] MEDS: INSULIN REGULAR, HUMAN 100 UNITS/1 ML SUB-Q SCH ×2 (09:49→12:19)
[2019-12-04] MEDS ORDERED: FAMOTIDINE 20 MG TAB PO SCH (10:00)
[2019-12-04] MEDS ORDERED: INSULIN NPH, HUMAN 100 UNIT/1 ML SUB-Q SCH (12:30)
--- NOTE | 2019-12-04 12:36 | Discharge Summary ---
Providers - Providers Date of Admission: 12/03/19 07:50 Date of discharge: 12/04/19 Attending physician: NABILA CHIU 12/02/19 23:43 Consult to Dietitian/Nutrition [CONS] Routine Physician Instructions: Reason For Exam: Reason for Consult: Diet education Consult to Physician [CONS] Routine Comment: Consulting Provider: HILARIO SHUKLA Physician Instructions: Reason For Exam: DKA Primary care physician: CHALK TESTER Hospitalization Condition: Stable Hospital course: Brief history: 49-year-old -Serbian male with no significant past medical history presentedto the emergency room with complaining of generalized fatigue, increased thirst and increased urinary frequency. Work-up in the emergency room revealed blood glucose 492, anion gap 27, positive ketones of 80 in the urine. He he was started on insulin drip, IV fluid and admitted to ICU for further management. Patient was weaned off from insulin drip as BG improved and anion gap closed. Patient was continued on iv fluid, consistent carb diet, Placed on Long-acting insulin and SSI. Adjusted long acting insulin dose to better improve BG level, counselled for dietary and insulin regimen compliance. Patient was then discharged home in stable condition with outpt f/u. Discharge diagnosis and Mx: DKA with type 2 diabetes -Patient admitted to ICU with insulin drip -s/p insulin drip and placed on long-acting insulin along with sliding scale insulin with Accu-Chek QA CHS -Placed on consistent carb diet, A1c 11.1 New onset diabetes mellitus type 2 -Placed on long-acting and sliding scale of insulin -Consulted nutrition for diabetic education Hyponatremia, likely due to hyperglycemia -Improved with improvement of blood glucose Hyperkalemia, likely from dehydration resolved with IV fluid Hypophosphatemia, repleted DVT prophylaxis, Lovenox Physical exam: GENERAL: well-developed and well-nourished -Serbian male lying on bed appeared to be in no discomfort. HEENT: Normocephalic. Atraumatic. No conjunctival congestion or icterus. Patient has moist mucous membranes. NECK: Supple. Trachea midline. CHEST/LUNGS: Clear to auscultated bilaterally, breathing nonlabored. No wheezes crackles or rhonchi. HEART/CARDIOVASCULAR: Regular in rate and rhythm. S1 and S2 positive. ABDOMEN: Abdomen is soft, nontender. Patient has normal bowel sounds. SKIN: There is no rash. Warm and dry. NEURO: No focal motor deficit. Follows command. MUSCULOSKELETAL: No joint effusion or tenderness. EXTRIMITY: No edema, no cyanosis or clubbing. PSYCH: Cooperative. Disposition: DC-01 TO HOME OR SELFCARE Time spent for discharge: 34 minutes Core Measure Documentation - Palliative Care Palliative Care/ Comfort Measures: Not Applicable - Core Measures Any of the following diagnoses?: none Exam - Constitutional Vitals: Temp Pulse Resp BP Pulse Ox 97.8 F 78 18 110/75 97 12/04/19 07:38 12/04/19 07:38 12/04/19 07:38 12/04/19 07:38 12/04/19 07:38 Plan Activity: advance as tolerated Weight Bearing Status: Weight Bear as Tolerated Diet: diabetic Special Instructions: record blood sugar diary Additional Instructions: Please check BG 30 minutes before meal and at bedtime Follow up with: PRIMARY MD JOYA [Primary Care Provider] - 3-5 Days MAYNOR ABRAHAM MD [Staff Physician] - 7 Days Forms: Discharge Signature Page Prescriptions: metFORMIN [Glucophage] 850 mg PO BIDDIAB #60 tablet Insulin Regular, Human [HumuLIN R] 0 units SUB-Q ACHS 30 Days Insulin NPH, Human [NovoLIN N] 23 unit SUB-Q BIDDIAB 30 Days Other Discharge Orders: Glucometer (Amb) Location: None Selected Glucometer supplies[Amb] Location: None Selected
[2019-12-04] MEDS ORDERED: metFORMIN 850 MG TAB PO SCH (17:00)
== END 2019-12-04 15:00 | disposition home or self-care (01) | DRG 638 ==
LOC: ED 19:57 → CC1 23:30 → OBSVTOIN 12-03 07:50 → 4A 12-03 17:04
PROVIDERS: ADMIT Internal Medicine Geriatric Medicine; ATTEND Internal Medicine
DX: E11.10 Type 2 diabetes mellitus with ketoacidosis without coma (principal); E87.1 Hypo-osmolality and hyponatremia; F17.210 Nicotine dependence, cigarettes, uncomplicated; G43.909 Migraine, unspecified, not intractable, without status migrainosus; J45.909 Unspecified asthma, uncomplicated; E87.5 Hyperkalemia; E83.39 Other disorders of phosphorus metabolism; Z71.6 Tobacco abuse counseling; Z88.0 Allergy status to penicillin
CPT/HCPCS: 36415; 80048; 80053; 81001; 82010; 82140; 82805; 82962; 83036; 83735; 84100; 85025; 99406; G0378; J1644; J1815; J7030; J7050

== ENCOUNTER 2020-02-03 00:50 | Emergency (ER) | payer SELFPAY ==
[2020-02-03 01:16] VITALS: BP 127/90
== END 2020-02-03 02:08 | disposition left against medical advice (07) ==
LOC: ED 00:50
DX: R73.9 Hyperglycemia, unspecified (principal); Z53.21 Procedure and treatment not carried out due to patient leaving prior to being seen by health care provider
CPT/HCPCS: 82962